=== PATIENT | male | born 1950 | race Caucasian/White ===

== ENCOUNTER 2017-02-19 12:17 | Inpatient (IN) | payer MEDICARE, MEDICAID ==
[~2017-02-19] VITALS: Ht 165.1 cm; Wt 62.6 kg
[2017-02-19] MEDS ORDERED: LITH300C2 PO (12:38)
[2017-02-19] MEDS ORDERED: MIRT15TA7 PO (12:38)
[2017-02-19 12:54] VITALS: BP 115/73
[2017-02-19] MEDS ORDERED: LORAZEPAM 0.5 MG TABLET PO PRN (13:00)
[2017-02-19] MEDS ORDERED: MAG HYDROX/AL HYDROX/SIMETH 30 ML UDC PO PRN (13:00)
[2017-02-19] MEDS ORDERED: TEMAZEPAM 7.5 MG CAPSULE PO PRN (13:00)
[2017-02-19] MEDS ORDERED: ACETAMINOPHEN 325 MG TABLET PO PRN (13:00)
[2017-02-19 16:04] VITALS: BP 113/72
--- NOTE | 2017-02-19 16:24 | NUR ---
GPS RN: ADMITTED PATIENT FROM [facility]. PATIENT ARRIVED AT 1230, BIB. UPON FACE TO FACE ASSESSMENT PATIENT IS A/OX3, AMBULATORY, VS STABLE, NOT IN ANY DISTRESS, DENIES ANY SI/HI. BELONGINGS CHECKED FOR CONTRABAND. ADMITTING ORDERS RECEIVED FROM DR. GUNN. DR. REYNOLDS MADE AWARE OF THIS ADMISSION. MRSA SWAB DONE. ORIENTED PATIENT TO THE UNIT, PROVIDED WITH CALM AND SAFE ENVIRONMENT, ALL NEEDS ATTENDED, CONTINUE TO MONITOR.
[2017-02-19 20:00] VITALS: BP 106/78
[2017-02-20 08:00] VITALS: BP 117/76
[2017-02-20 08:42] LABS: ALBUMIN 3.5 g/dL (3.4-5.0); CALCIUM, SERUM 8.7 mg/dL (8.5-10.1); POTASSIUM 3.8 mmol/L (3.5-5.1); TOTAL PROTEIN, SERUM 6.5 g/dL (6.4-8.2)
[2017-02-20 08:55] LABS: BILIRUBIN,TOTAL 0.4 mg/dL (0.2-1.0)
[2017-02-20] MEDS: SERTRALINE HCL 25 MG TABLET PO SCH (14:44)
[2017-02-20] MEDS: LITHIUM CARBONATE (300 MG CAP) 300 MG CAPSULE PO SCH ×2 (14:44→21:42)
[2017-02-20 15:52] VITALS: BP 115/64
[2017-02-20 20:02] VITALS: BP 107/70
[2017-02-20] MEDS: MIRTAZAPINE 15 MG TABLET PO SCH (21:42)
--- NOTE | 2017-02-21 01:16 | NUR ---
Pt has been with depressed mood, passive, withdrawn, disorganized, & isolative but compliant/redirectable.
[2017-02-21 08:00] VITALS: BP 105/60
[2017-02-21] MEDS: LITHIUM CARBONATE (300 MG CAP) 300 MG CAPSULE PO SCH ×2 (08:06→21:37)
[2017-02-21] MEDS: SERTRALINE HCL 25 MG TABLET PO SCH (08:06)
[2017-02-21 16:00] VITALS: BP 107/72
--- NOTE | 2017-02-21 19:30 | NUR ---
GPS RN NOTE, RECEIVED PATIENT AWAKE AND IN BED, NO S/S OR COMPLAINTS OF PAIN AT THIS TIME. PATIENT IS DISPLAYING NO S/S OF APPARENT DISTRESS AT THIS TIME. PATIENT BREATHING IS UNLABORED WITH EQUAL RISE AND FALL OF THE CHEST. PATIENT IS ALERT AND ORIENTED X 2 ON ROOM AIR WITH A SPO2 95%. PATIENT COMPLIANT WITH MEDICATIONS, ANXIOUS, DISORGANIZED, CONFUSED AT TIMES, AND NEEDS REORIENTATION. PATIENT DENIES SUICIDE AND HOMICIDAL IDEATIONS AT THIS TIME. PATIENT ASSISTED WITH TURNING AND REPOSITIONING Q2HR AND PRN FOR COMFORT AND CIRCULATION. PATIENT HAS NO NEEDS AT THIS TIME. PATIENT EDUCATED ON THE USE OF THE CALL HALL. PATIENT BED SIDE RAILS UP X2 FOR SAFETY, BED IS LOCKED AND LOW WILL CONTINUE TO MONITOR AND MAINTAIN SAFETY.
[2017-02-21 19:49] VITALS: BP 106/70
[2017-02-21] MEDS: MIRTAZAPINE 15 MG TABLET PO SCH (21:37)
[2017-02-21] MEDS ORDERED: QUETIAPINE FUMARATE 25 MG TABLET PO SCH (22:00)
[2017-02-22 08:00] VITALS: BP 103/71
[2017-02-22] MEDS: LITHIUM CARBONATE (300 MG CAP) 300 MG CAPSULE PO SCH ×2 (08:15→21:45)
[2017-02-22] MEDS: SERTRALINE HCL 25 MG TABLET PO SCH (08:15)
--- NOTE | 2017-02-22 09:21 | NUR ---
Initial discharge plan: Pt. lives in an independent living at [id number] [facility] [address] [place] [address] and wants to return upon discharge. His contact people are his psychologist, Katie [phone], and building construction ironworker, Vishal [phone]. SW will follow up with and will help form safe and proper discharge.
[2017-02-22 15:42] VITALS: BP 100/68
[2017-02-22 20:28] VITALS: BP 129/78
[2017-02-22] MEDS: MIRTAZAPINE 15 MG TABLET PO SCH (21:45)
[2017-02-22] MEDS ORDERED: QUETIAPINE FUMARATE 25 MG TABLET PO SCH (22:00)
[2017-02-23 07:40] LABS: BASOPHILS % (AUTO) 0.5 % (0.0-2.0); EOSINOPHILS # (AUTO) 0.3 /CMM (0.0-0.7); EOSINOPHILS % (AUTO) 8.2 % (0.0-6.0); HEMATOCRIT 44 % (39-51); HEMOGLOBIN 14.5 g/dL (13.5-17.5); LYMPHOCYTES # (AUTO) 1.6 /CMM (0.8-4.8); LYMPHOCYTES % (AUTO) 37.9 % (20.0-44.0); MEAN CORPUSCULAR HEMOGLOBIN 32 PG (26.0-33.0); MEAN CORPUSCULAR HGB CONC 33 g/dl (31.0-36.0); MEAN CORPUSCULAR VOLUME 96 fL (80-96); MONOCYTES # (AUTO) 0.5 /CMM (0.1-1.30); MONOCYTES % (AUTO) 11.2 % (2.0-12.0); NEUTROPHILS # (AUTO) 1.7 /CMM (1.8-8.9); NEUTROPHILS % (AUTO) 42.2 % (43.0-81.0); PLATELET COUNT (AUTO) 198 /CMM (150-450); RDW COEFFICIENT OF VARIATION 12.5 (11.5-15.0); RED BLOOD CELL COUNT(AUTO) 4.56 MIL/uL (4.5-6.0); WHITE BLOOD COUNT (AUTO) 4.1 K/uL (4.3-11.0)
[2017-02-23 07:50] LABS: ALBUMIN 3.4 g/dL (3.4-5.0); BILIRUBIN,TOTAL 0.4 mg/dL (0.2-1.0); CALCIUM, SERUM 9.2 mg/dL (8.5-10.1); POTASSIUM 3.9 mmol/L (3.5-5.1); TOTAL PROTEIN, SERUM 6.5 g/dL (6.4-8.2)
[2017-02-23 08:00] VITALS: BP 101/63
[2017-02-23] MEDS: LITHIUM CARBONATE (300 MG CAP) 300 MG CAPSULE PO SCH ×2 (08:49→21:27)
[2017-02-23] MEDS: SERTRALINE HCL 25 MG TABLET PO SCH (08:49)
[2017-02-23 16:00] VITALS: BP 100/75
--- NOTE | 2017-02-23 18:20 | NUR ---
ADMINISTERED ATIVAN 0.5 MG PO PRN FOR ANXIETY, KEEP ASKING TO TAKING A SHOWER, V/S TAKEN BP-118/76, P-87, CONTINUED MONITORING.
[2017-02-23] MEDS ORDERED: OLANZAPINE 2.5 MG TABLET PO SCH (20:00)
[2017-02-23] MEDS: MIRTAZAPINE 15 MG TABLET PO SCH (21:27)
[2017-02-23 21:34] VITALS: BP 109/63
[2017-02-24 07:58] VITALS: BP 101/60
[2017-02-24] MEDS: LITHIUM CARBONATE (300 MG CAP) 300 MG CAPSULE PO SCH ×2 (08:19→21:14)
[2017-02-24] MEDS: SERTRALINE HCL 25 MG TABLET PO SCH (08:19)
--- NOTE | 2017-02-24 15:36 | NUR ---
Pt. was referred [address] [place] [id number] [facility] [place] [address] . Will follow up with CJ from admission. Addendum: 02/25/17 at 1355 by INA BARAKAT Pt. is accepted per CJ from admissions
[2017-02-24 15:55] VITALS: BP 114/66
[2017-02-24 20:00] VITALS: BP 105/56
[2017-02-24] MEDS: OLANZAPINE 2.5 MG TABLET PO SCH (21:14)
[2017-02-24] MEDS: MIRTAZAPINE 15 MG TABLET PO SCH (22:23)
[2017-02-25] MEDS: LITHIUM CARBONATE (300 MG CAP) 300 MG CAPSULE PO SCH ×2 (08:03→21:19)
[2017-02-25] MEDS: SERTRALINE HCL 25 MG TABLET PO SCH (08:03)
[2017-02-25 08:14] VITALS: BP 124/77
[2017-02-25 16:13] VITALS: BP 110/76
[2017-02-25] MEDS: BOOST PLUS FOOD-VANILLA 237 ML BOX PO SCH (16:32)
[2017-02-25 20:00] VITALS: BP 108/77
[2017-02-25] MEDS: OLANZAPINE 2.5 MG TABLET PO SCH (21:19)
[2017-02-25] MEDS: MIRTAZAPINE 15 MG TABLET PO SCH (22:10)
[2017-02-26] MEDS: SERTRALINE HCL 25 MG TABLET PO SCH (08:45)
[2017-02-26] MEDS: BOOST PLUS FOOD-VANILLA 237 ML BOX PO SCH ×2 (08:46→16:42)
[2017-02-26 09:08] VITALS: BP 108/59
[2017-02-26] MEDS: LITHIUM CARBONATE (300 MG CAP) 300 MG CAPSULE PO SCH ×2 (10:02→21:10)
[2017-02-26 16:00] VITALS: BP 95/59
[2017-02-26] MEDS: MAGNESIUM HYDROXIDE 30 ML UDC PO PRN (16:41)
[2017-02-26 20:16] VITALS: BP 103/62
[2017-02-26] MEDS: OLANZAPINE 2.5 MG TABLET PO SCH (21:10)
[2017-02-26] MEDS: MIRTAZAPINE 15 MG TABLET PO SCH (22:07)
[2017-02-27 06:21] LABS: BASOPHILS % (AUTO) 0.3 % (0.0-2.0); EOSINOPHILS # (AUTO) 0.4 /CMM (0.0-0.7); EOSINOPHILS % (AUTO) 7.7 % (0.0-6.0); HEMATOCRIT 41 % (39-51); HEMOGLOBIN 13.7 g/dL (13.5-17.5); LYMPHOCYTES # (AUTO) 2.1 /CMM (0.8-4.8); MEAN CORPUSCULAR HEMOGLOBIN 32 PG (26.0-33.0); MEAN CORPUSCULAR HGB CONC 33 g/dl (31.0-36.0); MEAN CORPUSCULAR VOLUME 96 fL (80-96); MONOCYTES # (AUTO) 0.5 /CMM (0.1-1.30); MONOCYTES % (AUTO) 9.2 % (2.0-12.0); NEUTROPHILS # (AUTO) 2.6 /CMM (1.8-8.9); NEUTROPHILS % (AUTO) 45.8 % (43.0-81.0); PLATELET COUNT (AUTO) 208 /CMM (150-450); RDW COEFFICIENT OF VARIATION 12.4 (11.5-15.0); RED BLOOD CELL COUNT(AUTO) 4.27 MIL/uL (4.5-6.0); WHITE BLOOD COUNT (AUTO) 5.7 K/uL (4.3-11.0)
[2017-02-27 07:20] LABS: CALCIUM, SERUM 8.9 mg/dL (8.5-10.1); CREATININE 0.9 mg/dL (0.6-1.3); MAGNESIUM 1.9 mg/dL (1.8-2.4); POTASSIUM 4.5 mmol/L (3.5-5.1)
[2017-02-27 08:00] VITALS: BP 101/74
[2017-02-27] MEDS: SERTRALINE HCL 25 MG TABLET PO SCH (08:19)
[2017-02-27] MEDS: BOOST PLUS FOOD-VANILLA 237 ML BOX PO SCH ×2 (08:19→16:37)
[2017-02-27] MEDS: LITHIUM CARBONATE (300 MG CAP) 300 MG CAPSULE PO SCH ×2 (08:19→21:38)
[2017-02-27] MEDS: DOCUSATE SODIUM 100 MG CAPSULE PO SCH ×2 (12:48→16:37)
[2017-02-27 16:14] VITALS: BP 108/71
[2017-02-27 20:00] VITALS: BP 110/74
[2017-02-27] MEDS: MIRTAZAPINE 15 MG TABLET PO SCH (21:39)
[2017-02-27] MEDS: OLANZAPINE 2.5 MG TABLET PO SCH (21:39)
--- NOTE | 2017-02-28 01:13 | NUR ---
Pt has been passive, hypoverbal, & with depressed mood but compliant with care.
[2017-02-28 08:00] VITALS: BP 107/69
[2017-02-28] MEDS: DOCUSATE SODIUM 100 MG CAPSULE PO SCH ×2 (08:40→16:21)
[2017-02-28] MEDS: LITHIUM CARBONATE (300 MG CAP) 300 MG CAPSULE PO SCH ×2 (08:40→20:55)
[2017-02-28] MEDS: SERTRALINE HCL 25 MG TABLET PO SCH (08:41)
[2017-02-28] MEDS: BOOST PLUS FOOD-VANILLA 237 ML BOX PO SCH ×2 (08:43→16:32)
[2017-02-28] MEDS: MAGNESIUM HYDROXIDE 30 ML UDC PO PRN (13:28)
--- NOTE | 2017-02-28 13:29 | NUR ---
[id number]: ADMINISTER MILK OF MAGNESIA 30 ML PO DUE TO CONSTIPATION UPON PT REQUEST AND WILL CONTINUE TO MONITOR FOR EFFECTIVENESS OF MEDICATION
[2017-02-28 16:00] VITALS: BP 116/77
[2017-02-28 20:04] VITALS: BP 96/62
[2017-02-28] MEDS: LACTULOSE 10 G/15 ML UDC (PYXIS) PO PRN (21:15)
[2017-02-28] MEDS: MIRTAZAPINE 15 MG TABLET PO SCH (22:20)
[2017-02-28] MEDS: OLANZAPINE 2.5 MG TABLET PO SCH (22:20)
[2017-03-01] MEDS: LITHIUM CARBONATE (300 MG CAP) 300 MG CAPSULE PO SCH ×2 (08:08→20:58)
[2017-03-01] MEDS: SERTRALINE HCL 25 MG TABLET PO SCH (08:08)
[2017-03-01] MEDS: BOOST PLUS FOOD-VANILLA 237 ML BOX PO SCH ×2 (08:08→16:01)
[2017-03-01] MEDS: DOCUSATE SODIUM 100 MG CAPSULE PO SCH ×2 (08:08→16:01)
[2017-03-01 08:16] VITALS: BP 100/66
[2017-03-01 16:00] VITALS: BP 117/72
[2017-03-01] MEDS: MAGNESIUM HYDROXIDE 30 ML UDC PO PRN (16:18)
--- NOTE | 2017-03-01 16:18 | NUR ---
[id number]: ADMINISTER MILK OF MAGNESIA 30 ML PO DUE TO CONSTIPATION UPON PT REQUEST AND WILL CONTINUE TO MONITOR FOR EFFECTIVENESS OF MEDICATION
[2017-03-01 20:13] VITALS: BP 91/56
[2017-03-01] MEDS: MIRTAZAPINE 15 MG TABLET PO SCH (21:48)
[2017-03-01] MEDS ORDERED: OLANZAPINE 2.5 MG TABLET PO SCH (22:00)
[2017-03-02 08:00] VITALS: BP 102/62
[2017-03-02] MEDS: DOCUSATE SODIUM 100 MG CAPSULE PO SCH (08:21)
[2017-03-02] MEDS: BOOST PLUS FOOD-VANILLA 237 ML BOX PO SCH (08:21)
[2017-03-02] MEDS: LACTULOSE 10 G/15 ML UDC (PYXIS) PO PRN (08:41)
--- NOTE | 2017-03-02 08:41 | NUR ---
administered lactulose 20 mg /ml po prn for constipation, encouraged to increase fluid intake, continued monitoring.
[2017-03-02] MEDS: LITHIUM CARBONATE (300 MG CAP) 300 MG CAPSULE PO SCH (08:53)
[2017-03-02] MEDS: SERTRALINE HCL 25 MG TABLET PO SCH (08:53)
--- NOTE | 2017-03-02 12:50 | NUR ---
DISCHARGE NOTES/ PATIENT DISCHARGE AT THIS TIME GOING SNF. PATIENT A/O X3, MED COMPLIANT, V/S STABLE, MEDICALLY STABLE, NO C/O PAIN. PATIENT DENIED SI/HI/AVH. MED RECONCILIATION, AND DISCHARGE ORDER REVIEWED AND EXPLAINED TO. REPORT GIVEN SNF LARRY PEÑALOZA RN VERBALIZED UNDERSTANDING. BELONGING RETURNED BACK TO THE PATIENT. PATIENT FOREST EXAMINER BY AMBULANCE. PT REFUSED SIGN PAPERWORK, AND PICTURE. PT HAS NO FAMILY.
== END 2017-03-02 12:50 | DRG 885 ==
LOC: GPS 12:17
PROVIDERS: ADMIT Psychiatry & Neurology Psychosomatic Medicine; ATTEND Internal Medicine
DX: F31.9 Bipolar disorder, unspecified (principal); R45.851 Suicidal ideations; F41.9 Anxiety disorder, unspecified; Z91.19 Patient's noncompliance with other medical treatment and regimen; F29 Unspecified psychosis not due to a substance or known physiological condition; K59.00 Constipation, unspecified; Z79.899 Other long term (current) drug therapy; Z73.6 Limitation of activities due to disability; Z87.891 Personal history of nicotine dependence
CPT/HCPCS: 36415; 80048-TC; 80053-TC; 83735-TC; 84100-TC; 85025-TC; 87081-TC; 97001-TC

== ENCOUNTER 2020-01-27 21:58 | Emergency (ER) | payer MEDICARE, MEDICAID ==
[~2020-01-27] VITALS: Ht 180.3 cm; Wt 64.9 kg
--- NOTE | 2020-01-27 22:00 | NUR ---
called to triage, no answer. not in waiting room
[2020-01-27 22:09] VITALS: BP 114/69
--- NOTE | 2020-01-27 22:33 | NUR ---
Patient discharged to home in stable condition. Written and verbal after care instructions given. Patient verbalizes understanding of instruction.
== END 2020-01-27 22:33 | disposition home or self-care (01) ==
LOC: ER 22:02
DX: Z76.0 Encounter for issue of repeat prescription (principal); F31.9 Bipolar disorder, unspecified